=== PATIENT | male | born 1950 | race Caucasian/White ===

== ENCOUNTER 2021-05-17 15:46 | Inpatient (IN) ==
[2021-05-17] MEDS ORDERED: ONDANSETRON INJ 2 MG/ML 2 ML VIAL IV STA (16:13)
[2021-05-17] MEDS ORDERED: SODIUM CHLORIDE 0.9% 500 ML IV SCH (16:15)
--- NOTE | 2021-05-17 16:20 | Emergency Department Note ---
Impression & Plan Weakness, Vomiting and diarrhea, KAITY (acute kidney injury), Acute hyperglycemia, COVID-19, Pneumonia ED Provider Note NAME: LILA OTT AGE: 71 SEX: M : 1950 ARRIVES VIA: Ambulance INFORMANT: [Patient] ED PROVIDER(S): [Heriberto Shell MD] CHIEF COMPLAINT: Chest pain, weakness HISTORY OF PRESENT ILLNESS: The patient is a 71-year-old male who presents with multiple complaints. He typically goes to [facility] however, today, the ambulance crew would not take him there as it was too far. He presented to our facility. The patient complains of 10 to 11 days worsening dizziness, intermittent chest pain, shortness of breath, vomiting, diarrhea, cough. He has diffuse abdominal pain. He has not had fever. The patient states he can keep nothing down. The patient was admitted to [facility] in late April of last year with similar complaints to today. He was there for about 4 days. He was diagnosed with a PE and is now on Xarelto. The patient is vaccinated x2 for COVID-19. He has had his influenza vaccine. He lives alone. Today, the visiting nurses felt he looked poorly and advised him to present to the hospital. REVIEW OF SYSTEMS: See HPI for pertinent positives and negatives. A total of ten systems were reviewed and were otherwise negative. PMHx/PSHx: See Below SOCIAL HISTORY: See Below. PHYSICAL EXAM: GENERAL: Patient is in no acute distress. HEENT: No acute trauma, normocephalic atraumatic, mucous membranes moist, no nasal congestion, no scleral icterus. NECK: No stridor, no adenopathy, no meningismus, trachea is midline. LUNGS: Clear to auscultation bilaterally when listening anterior. No wheeze, no rhonchi, breath sounds equal. Dry cough noted. HEART: Without murmurs gallops or rubs, regular rate and rhythm. ABDOMEN: Soft, nontender, bowel sounds positive, no hernias, no peritonitis. Quite obese. EXTREMITIES: No cyanosis or edema, full range of motion of all the joints without pain or difficulty, no signs for acute trauma. He has a chronic skin changes to both lower extremities bilaterally. No active cellulitis or warmth present. NEUROLOGIC: Oriented x 3, no acute motor or sensory deficits, no focal weakness. SKIN: No rash, no jaundice, no diaphoresis. DIFFERENTIAL DIAGNOSIS: Infection, dehydration, metabolic abnormality, influenza, COVID-19, renal or liver failure, colitis, diverticulitis, UTI, hypo/hyperglycemia, electrolyte disturbance, anemia, hypoxia, cardiac sources, as well as other pathologies. EMERGENCY DEPARTMENT COURSE/PROCEDURES: ECG: Indication was weakness. The ECG shows a normal sinus rhythm with a rate of 77. There is no ST elevation, no PVCs. The QTC is 450. Continuous Cardiac Monitoring: An order was placed for continuous cardiac monitoring. The monitor shows a rate of 75 with normal sinus rhythm. MEDICAL DECISION MAKING: There is a mild leukocytosis which could be consistent with infection. There is a normal hemoglobin and platelet count. No coagulopathy. Renal panel testing shows a mildly low sodium and a slightly high potassium. There was some presumed acute kidney injury with a creatinine of 2.34. Glucose was quite high at 321. Lactic acid level was not elevated making severe sepsis less likely. No concerning liver enzyme elevation. The patient did have a slightly high TSH, the T4 is pending. ECG shows a normal sinus rhythm, no obvious ischemia. Cardiac enzyme testing x1 is not consistent with acute cardiac injury. Chest x-ray does not show CHF or pneumonia. COVID testing returned positive. Influenza and RSV testing returned negative. Abdominal and pelvis he does not show any acute surgical process or source for infection. Urinalysis result is pending. The patient received IV insulin, IV saline. He was given IV Zofran. The patient appears to have acute kidney injury, he is hyperglycemic, dehydrated, weak. He has COVID-19. He lives alone. He does require a hospital stay. I spoke with the patient and supervisor case loading. The on-call hospitalist was consulted. Past Med/Surg History Medical History Chronic kidney disease MONITORED, NO CURRENT TREATMENT Diabetes mellitus, type 2 A1C 7.1. History of DVT (deep vein thrombosis) FOLLOWS WITH HEMATOLOGY IN [facility]. Hyperlipidemia Hypertension Hypothyroidism Morbid obesity with BMI of 50.0-59.9, adult MTHFR mutation PT FOLLOWS WITH HEMATOLOGY IN [place], [place]. PT HAS PLASMAPHORESIS TREATMENTS Myocardial Infarction APPROX 5 YEARS. PT HAD CARDIAC CATH. NO STENTS. [facility]. Sleep apnea HX OF PREVIOUS DX. PT HAD UPP PROCEDURE 20 YEARS AGO. NO LONGER USES DEVICE. Surgical History History of bladder surgery History of cardiac cath NO History of cholecystectomy History of colonoscopy History of cystoscopy History of rectal surgery History of tonsillectomy Status post uvulopalatopharyngoplasty Family History Mother Epilepsy Social History Smoking Status: Never smoker Second Hand Exposure: No; Hx Alcohol Use: No Hx Substance Use: No Preferred Language: Azerbaijani Communication Ability: Effective [employer] Required: No Beliefs That Will Affect Care: None Current Living Situation: Alone Feels Safe at Home: Yes Assistive Devices: Denture - Upper and Glasses Allergies Allergies Allergy/AdvReac Type Severity Reaction Status Date / Time No Known Allergies Allergy Verified 05/17/21 16:38 Home Meds Home Medications Medication Instructions Recorded Confirmed aspirin 81 mg tablet,delayed 81 mg PO DAILY 08/06/18 05/17/21 release (Aspir-) atorvastatin 20 mg tablet 20 mg PO DAILY 08/06/18 05/17/21 bupropion HCl 150 mg tablet,12 hr 150 mg PO QAM 08/06/18 05/17/21 sustained-release (Wellbutrin SR) carvedilol 12.5 mg tablet 25 mg PO BID 08/06/18 05/17/21 esomeprazole magnesium 40 mg 40 mg PO DAILY 08/06/18 05/17/21 capsule,delayed release (Nexium) folic acid 1 mg tablet 1 mg PO DAILY 08/06/18 05/17/21 insulin aspart U-100 100 unit/mL 0 unit SUBCUT UD 08/06/18 05/17/21 subcutaneous solution (Novolog U-100 Insulin aspart) insulin degludec 100 unit/mL (3 74 unit SUBCUT HS 08/06/18 05/17/21 mL) subcutaneous pen (Tresiba FlexTouch U-100 insulin) liraglutide 0.6 mg/0.1 mL (18 mg/3 1.8 unit SUBCUT QAM 08/06/18 05/17/21 mL) subcutaneous pen injector (Victoza 2-Thang) lisinopril 40 mg tablet 40 mg PO DAILY 08/06/18 05/17/21 thyroid (pork) 90 mg tablet 90 mg PO DAILY 08/06/18 05/17/21 ([place] Thyroid) trazodone 100 mg tablet 200 mg PO HS 08/06/18 05/17/21 bupropion HCl 300 mg 24 hr tablet, 300 mg PO DAILY 05/17/21 05/17/21 extended release calcifediol 30 mcg capsule,24 30 mcg PO HS 05/17/21 05/17/21 hr,extended release (Rayaldee) ciprofloxacin HCl 500 mg tablet 500 mg PO BID 05/17/21 05/17/21 rivaroxaban 15 mg tablet (Xarelto) 15 mg PO DAILY 05/17/21 05/17/21 vilazodone 20 mg tablet (Viibryd) 20 mg PO QAM 05/17/21 05/17/21 Results & Data (ED) Vital Signs Vital Signs - 24 hr 05/17/21 16:19 05/17/21 16:22 05/17/21 16:38 Temperature 36.8 C Temperature Source Oral Pulse Rate 77 Pulse Rate [Apical] 77 Respiratory Rate 16 18 Respiratory Depth Normal Normal Blood Pressure 180/80 H Blood Pressure [Left Arm] 183/89 H Blood Pressure Mean 113 Blood Pressure Mean [Left Arm] 120 Pulse Oximetry 93 93 Oxygen Delivery Method Room Air Room Air Room Air Sepsis Recent Fever Within 48 Hours No Sepsis New/Unexplained Change in Mental Status No Sepsis Action Taken by Nursing No Action Required Home Medications Current Medication List: was personally reviewed by me Laboratory Data Attestation: I reviewed the patient's lab results. Result diagrams: 05/17/21 16:39 05/17/21 16:39 Lab Results 05/17/21 05/17/21 05/17/21 Range/Units 16:39 16:39 16:39 WBC (4.8-10.8) K/uL RBC (4.7-6.1) M/uL Hgb (14.0-18.0) g/dL Hct (42-52) % MCV (80-100) fL MCH (25-34) pg MCHC (32-36) g/dL RDW Std Deviation (36.4-46.3) fL RDW Coeff of Osvaldo (11.5-14.5) % Plt Count (130-400) K/uL MPV (7.4-10.4) fL Immature Gran % (Auto) % Neut % (Auto) % Lymph % (Auto) % Pettis % (Auto) % Eos % (Auto) % Baso % (Auto) % Neut # (Auto) (1.4-6.5) K/uL Lymph # (Auto) (1.2-3.4) K/uL Pettis # (Auto) (0.11-0.59) K/uL Eos # (Auto) (0-0.5) K/uL Baso # (Auto) (0-0.2) K/uL Immature Gran # (Auto) (0.00-0.02) K/uL PT 11.1 (9.0-12.0) Seconds INR 1.1 (0.9-1.1) APTT 26.6 (21.0-31.0) Seconds PTT Ratio 1.0 Sodium 133 L (136-145) mmol/L Potassium 5.5 H (3.5-5.1) mmol/L Chloride 100 (98-107) mmol/L Carbon Dioxide 19 L (21-32) mmol/L Anion Gap 14 H (3-11) BUN 38 H (6-23) mg/dl Creatinine 2.34 H (0.6-1.4) mg/dl Est Cr Clr Drug Dosing Not Reportable Est GFR ( Amer) 31.7 ml/min Est GFR (Non-Af Amer) 27.4 ml/min BUN/Creatinine Ratio 16.2 (10-20) Glucose 321 H* (70-99) mg/dl Lactate 1.9 (0.4-2.0) mmol/L Calcium 8.8 (8.5-10.1) mg/dl Magnesium 1.9 (1.7-2.4) mg/dl Total Bilirubin 1.3 H (0.2-1.0) mg/dl AST 17 (13-39) U/L ALT 15 (7-52) U/L Alkaline Phosphatase 103 (34-104) U/L Total Creatine Kinase 97 (39-308) U/L Troponin I 0.03 (0-0.04) ng/ml Total Protein 7.1 (6.0-8.3) gm/dl Albumin 3.6 (3.4-5.0) gm/dl Globulin 3.5 (2.5-4.0) gm/dl Albumin/Globulin Ratio 1.0 (0.9-2) Beta-Hydroxybutyric Acd 45.18 H (0.2-2.81) mg/dl TSH 5.063 H (0.300-4.500) uIu/ml SARS-CoV-2 (PCR) (Negative) Influenza Type A (PCR) (Neg) Influenza Type B (PCR) (Neg) RSV (RT-PCR) (Neg) 05/17/21 05/17/21 Range/Units 16:39 Unknown WBC 11.76 H (4.8-10.8) K/uL RBC 4.93 (4.7-6.1) M/uL Hgb 15.1 (14.0-18.0) g/dL Hct 44.5 (42-52) % MCV 90.3 (80-100) fL MCH 30.6 (25-34) pg MCHC 33.9 (32-36) g/dL RDW Std Deviation 46.0 (36.4-46.3) fL RDW Coeff of Osvaldo 13.9 (11.5-14.5) % Plt Count 272 (130-400) K/uL MPV 9.5 (7.4-10.4) fL Immature Gran % (Auto) 0.3 % Neut % (Auto) 74.1 % Lymph % (Auto) 14.4 % Pettis % (Auto) 8.4 % Eos % (Auto) 2.5 % Baso % (Auto) 0.3 % Neut # (Auto) 8.73 H (1.4-6.5) K/uL Lymph # (Auto) 1.69 (1.2-3.4) K/uL Pettis # (Auto) 0.99 H (0.11-0.59) K/uL Eos # (Auto) 0.29 (0-0.5) K/uL Baso # (Auto) 0.03 (0-0.2) K/uL Immature Gran # (Auto) 0.03 H (0.00-0.02) K/uL PT (9.0-12.0) Seconds INR (0.9-1.1) APTT (21.0-31.0) Seconds PTT Ratio Sodium (136-145) mmol/L Potassium (3.5-5.1) mmol/L Chloride (98-107) mmol/L Carbon Dioxide (21-32) mmol/L Anion Gap (3-11) BUN (6-23) mg/dl Creatinine (0.6-1.4) mg/dl Est Cr Clr Drug Dosing Est GFR ( Amer) ml/min Est GFR (Non-Af Amer) ml/min BUN/Creatinine Ratio (10-20) Glucose (70-99) mg/dl Lactate (0.4-2.0) mmol/L Calcium (8.5-10.1) mg/dl Magnesium (1.7-2.4) mg/dl Total Bilirubin (0.2-1.0) mg/dl AST (13-39) U/L ALT (7-52) U/L Alkaline Phosphatase (34-104) U/L Total Creatine Kinase (39-308) U/L Troponin I (0-0.04) ng/ml Total Protein (6.0-8.3) gm/dl Albumin (3.4-5.0) gm/dl Globulin (2.5-4.0) gm/dl Albumin/Globulin Ratio (0.9-2) Beta-Hydroxybutyric Acd (0.2-2.81) mg/dl TSH (0.300-4.500) uIu/ml SARS-CoV-2 (PCR) POSITIVE A* (Negative) Influenza Type A (PCR) Negative (Neg) Influenza Type B (PCR) Negative (Neg) RSV (RT-PCR) Negative (Neg) Administered Medications Discontinued Medications Sodium Chloride (Nss) 500 mls @ 999 mls/hr IV .Q31M YAS Stop: 05/17/21 16:45 Last Infusion: 05/17/21 17:15 Dose: 0 mls/hr Documented by: [id number] Admin: 05/17/21 16:44 Dose: 999 mls/hr Documented by: [id number] Sodium Chloride (Nss 1000ml) 500 mls @ 999 mls/hr IV .Q31M ONE Stop: 05/17/21 18:38 Last Admin: 05/17/21 18:42 Dose: 999 mls/hr Documented by: [id number] Insulin Human Regular (Novolin-R Insulin Per Unit Charge) 6 units IV NOW STA Stop: 05/17/21 17:55 Last Admin: 05/17/21 18:00 Dose: 6 units Documented by: [id number] Cosigned by: [id number] Ondansetron HCl (Ondansetron Inj 2 Mg/Ml 2 Ml Vial) 4 mg IV NOW STA Stop: 05/17/21 16:14 Last Admin: 05/17/21 16:44 Dose: 4 mg Documented by: [id number] Imaging Data Radiologist's Impression: Chest X-Ray 05/17/21 16:14 XR chest 1V portable CLINICAL HISTORY: weakness TECHNIQUE: Single frontal radiograph of the chest was obtained. Comparison: None available at the time of this dictation. FINDINGS: No lines and tubes are seen. The cardiomediastinal silhouette is normal. The lungs are clear. No evidence of pleural effusion or pneumothorax. IMPRESSION: No acute chest disease. ACT 112: Negative or not required by law. Electronically signed by: Abiodun Puri M.D. 05/17/2021 4:47 PM Abdomen/Pelvis CT 05/17/21 17:53 CT abd pelvis wo con CLINICAL HISTORY: pain, diarrhea, poss colitis or divertic TECHNIQUE: Helical axial images of the abdomen and pelvis were obtained. Automated dose lowering techniques and/or adjustment according to patient size were utilized for this exam. This exam was performed without intravenous contra st. COMPARISON: None available at the time of this dictation. FINDINGS: Lower chest: Multiple groundglass opacities are seen. Liver: Unremarkable. No focal lesions are seen. Gallbladder and biliary tree: Patient is status post cholecystectomy. No intra- or extrahepatic biliary ductal dilation. Pancreas: Unremarkable, no focal lesions. Spleen: Calcifications are noted in the spleen compatible with prior granuloma tous disease. Adrenals: Unremarkable. Kidneys and ureters: Unremarkable. Bladder: Unremarkable. Reproductive organs: Unremarkable. Bowel: Diverticulosis is seen without evidence of diverticulitis. A small hiatal hernia is seen. The appendix is normal. Lymph nodes Retroperitoneal: Unremarkable. Mesenteric: Unremarkable. Pelvic: Unremarkable. Peritoneum: Normal Vessels: Unremarkable. Abdominal wall: A fat-containing umbilical hernia is seen. Bones: Degenerative changes in the visualized spine. IMPRESSION: 1. No acute abnormalities, in particular diverticulosis is seen without evidence of diverticulitis or colitis. 2. Multiple groundglass opacities in the visualized lungs which likely reflect infectious/inflammatory etiology. ACT 112: Negative or not required by law. Electronically signed by: Abiodun Puri M.D. 05/17/2021 6:42 PM Discharge Plan Visit Data Chief Complaint: Chest Pain ED Provider: Heriberto Shell Discharge Problem: Weakness, Vomiting and diarrhea, KAITY (acute kidney injury), Acute hyperglycemia, COVID-19, Pneumonia Patient Disposition: Admitted As Inpatient Condition: Fair Forms Stand Alone Forms: My [facility] Prescriptions Prescriptions: No Action bupropion HCl [Wellbutrin SR] 150 mg Tablet Sustained-Release 12 Hr 150 mg PO QAM RF: 0 atorvastatin 20 mg Tablet 20 mg PO DAILY RF: 0 carvedilol 12.5 mg Tablet 25 mg PO BID RF: 0 aspirin [Aspir-81] 81 mg Tablet,Delayed Release (Dr/Ec) 81 mg PO DAILY RF: 0 trazodone 100 mg Tablet 200 mg PO HS RF: 0 insulin aspart U-100 [Novolog U-100 Insulin aspart] 100 unit/mL Solution 0 unit SUBCUT UD RF: 0 esomeprazole magnesium [Nexium] 40 mg Capsule,Delayed Release(Dr/Ec) 40 mg PO DAILY RF: 0 folic acid 1 mg Tablet 1 mg PO DAILY RF: 0 lisinopril 40 mg Tablet 40 mg PO DAILY RF: 0 thyroid (pork) [[place] Thyroid] 90 mg Tablet 90 mg PO DAILY RF: 0 Victoza 2-Thang 0.6 mg/0.1 mL (18 mg/3 mL) Pen Injector 1.8 unit SUBCUT QAM RF: 0 Tresiba FlexTouch U-100 100 unit/mL (3 mL) Insulin Pen 74 unit SUBCUT HS RF: 0 ciprofloxacin HCl 500 mg tablet 500 mg PO BID RF: 0 bupropion HCl 300 mg tablet extended release 24 hr 300 mg PO DAILY RF: 0 Viibryd 20 mg tablet 20 mg PO QAM RF: 0 Xarelto 15 mg tablet 15 mg PO DAILY RF: 0 Rayaldee 30 mcg capsule,extended release 24 hr 30 mcg PO HS RF: 0 Referrals Referrals: PCP,NO [Primary Care Provider] - Discharge Problem: Pneumonia Qualifiers: Pneumonia type: due to unspecified organism Laterality: bilateral Lung location: unspecified part of lung Qualified Code(s): J18.9 - Pneumonia, unspecified organism
--- NOTE | 2021-05-17 16:48 | XRay Report ---
XR chest 1V portable CLINICAL HISTORY: weakness TECHNIQUE: Single frontal radiograph of the chest was obtained. Comparison: None available at the time of this dictation. FINDINGS: No lines and tubes are seen. The cardiomediastinal silhouette is normal. The lungs are clear. No evid ence of pleural effusion or pneumothorax. IMPRESSION: No acute chest disease. ACT 112: Negative or not required by law. Electronically signed by: Abiodun Puri M.D. 05/17/2021 4:47 PM
[2021-05-17 17:11] LABS: Basophils # (auto) 0.03 K/uL (0-0.2); Basophils % (auto) 0.3 %; Eosinophils # (auto) 0.29 K/uL (0-0.5); Eosinophils % (auto) 2.5 %; Hematocrit (blood only) 44.5 % (42-52); Hemoglobin 15.1 g/dL (14.0-18.0); Immature Granulocytes # (auto) 0.03 K/uL (0.00-0.02); Immature Granulocytes % (auto) 0.3 %; Lymphocytes # (auto) 1.69 K/uL (1.2-3.4); Lymphocytes % (auto) 14.4 %; Mean Corpuscular Hemoglobin 30.6 pg (25-34); Mean Corpuscular Hgb Conc 33.9 g/dL (32-36); Mean Corpuscular Volume 90.3 fL (80-100); Mean Platelet Volume 9.5 fL (7.4-10.4); Monocytes # (auto) 0.99 K/uL (0.11-0.59); Monocytes % (auto) 8.4 %; Neutrophils # (auto) 8.73 K/uL (1.4-6.5); Neutrophils % (auto) 74.1 %; Platelet Count 272 K/uL (130-400); RDW Coefficient of Variation 13.9 % (11.5-14.5); Red Blood Count 4.93 M/uL (4.7-6.1); White Blood Count 11.76 K/uL (4.8-10.8)
[2021-05-17 17:29] LABS: INR 1.1 (0.9-1.1); Partial Thromboplastin Time 26.6 Seconds (21.0-31.0); Prothrombin Time 11.1 Seconds (9.0-12.0)
[2021-05-17 17:33] LABS: Troponin I 0.03 ng/ml (0-0.04)
[2021-05-17 17:44] LABS: Influenza A virus by PCR Negative (Neg); Influenza B virus by PCR Negative (Neg); RSV by PCR Negative (Neg)
[2021-05-17 17:49] LABS: Alanine Aminotransferase 15 U/L (7-52); Albumin Level 3.6 gm/dl (3.4-5.0); Alkaline Phosphatase 103 U/L (34-104); Anion Gap 14 (3-11); Aspartate Aminotransferase 17 U/L (13-39); BUN Creatinine Ratio 16.2 (10-20); Bilirubin,Total 1.3 mg/dl (0.2-1.0); Blood Urea Nitrogen 38 mg/dl (6-23); Calcium 8.8 mg/dl (8.5-10.1); Carbon Dioxide 19 mmol/L (21-32); Chloride 100 mmol/L (98-107); Creatine Kinase 97 U/L (39-308); Est GFR (African American) 31.7 ml/min; Est GFR (Non-African American) 27.4 ml/min; Globulin 3.5 gm/dl (2.5-4.0); Glucose 321 mg/dl (70-99); Magnesium 1.9 mg/dl (1.7-2.4); Potassium 5.5 mmol/L (3.5-5.1); Sodium 133 mmol/L (136-145); Thyroid Stimulating Hormone 5.063 uIu/ml (0.300-4.500); Total Protein 7.1 gm/dl (6.0-8.3)
[2021-05-17 17:51] LABS: SARS CoV2 RNA(COVID-19) InHosp POSITIVE (Negative)
[2021-05-17] MEDS ORDERED: NovoLIN-R INSULIN PER UNIT CHARGE IV STA (17:54)
[2021-05-17] MEDS ORDERED: SODIUM CHLORIDE 0.9% 1000ML 500 ML IV ONE (18:08)
[2021-05-17 18:10] LABS: Beta-Hydroxybutyrate 45.18 mg/dl (0.2-2.81)
--- NOTE | 2021-05-17 18:43 | CT Scan Report ---
CT abd pelvis wo con CLINICAL HISTORY: pain, diarrhea, poss colitis or divertic TECHNIQUE: Helical axial images of the abdomen and pelvis were obtained. Automated dose lowering tech niques and/or adjustment according to patient size were utilized for this exam. This exam was perfor med without intravenous contrast. COMPARISON: None available at the time of this dictation. FINDINGS: Lower chest: Multiple groundglass opacities are seen. Liver: Unremarkable. No focal lesions are seen. Gallbladder and biliary tree: Patient is status post cholecystectomy. No intra- or extrahepatic bilia ry ductal dilation. Pancreas: Unremarkable, no focal lesions. Spleen: Calcifications are noted in the spleen compatible with prior granulomatous disease. Adrenals: Unremarkable. Kidneys and ureters: Unremarkable. Bladder: Unremarkable. Reproductive organs: Unremarkable. Bowel: Diverticulosis is seen without evidence of diverticulitis. A small hiatal hernia is seen. The appendix is normal. Lymph nodes Retroperitoneal: Unremarkable. Mesenteric: Unremarkable. Pelvic: Unremarkable. Peritoneum: Normal Vessels: Unremarkable. Abdominal wall: A fat-containing umbilical hernia is seen. Bones: Degenerative changes in the visualized spine. IMPRESSION: 1. No acute abnormalities, in particular diverticulosis is seen without evidence of diverticulitis o r colitis. 2. Multiple groundglass opacities in the visualized lungs which likely reflect infectious/inflammato ry etiology. ACT 112: Negative or not required by law. Electronically signed by: Abiodun Puri M.D. 05/17/2021 6:42 PM
[2021-05-17] MEDS ORDERED: ONDANSETRON INJ 2 MG/ML 2 ML VIAL ONE (19:23)
[2021-05-17] MEDS ORDERED: hydrALAZINE HCL 20 MG/ML VIAL IV STA (19:52)
[2021-05-17] MEDS ORDERED: PHARMACY GLYCEMIC MGMT CONSULT PRN (19:53)
--- NOTE | 2021-05-17 19:55 | History & Physical Report ---
Date of Service May 17, 2021 Assessment & Plan (1) Acute respiratory failure with hypoxia: (2) Pneumonia due to COVID-19 virus: Plan: -Admit to [facility] with telemetry -Patient presenting from home with reports of shortness of breath, intractable nausea and vomiting. Patient reports recently being admitted to [facility] at the end of April and was diagnosed with acute pulmonary embolism. Patient was started on Xarelto. Reports that he was admitted for similar symptoms he presents with today and has continued to feel poorly since discharge from the hospital. -In the ED, patient tested positive for COVID-19. Patient is vaccinated however overdue for booster. -Initially patient was saturating well on room air however when ambulating to the bathroom, became hypoxic requiring 2 L of oxygen via nasal cannula -CXR relatively clear however CT ABD/pelvis shows bibasilar groundglass opacities -Start IV Decadron -Given KAITY and duration of symptoms, patient would not meet criteria for remdesivir therapy -Check procalcitonin and CRP -Supportive care with incentive spirometer, flutter valve, albuterol inhaler, encourage self proning (3) KAITY (acute kidney injury): (4) Chronic kidney disease: Plan: -Creatinine 2.34, unknown baseline -Patient reports he follows with Dr. Shaw in [place]. Will need to request records tomorrow. -Hold lisinopril for now -May have prerenal KAITY due to poor p.o. intake and vomiting -IVF, follow renal functions (5) Acute hyperglycemia: (6) Diabetes mellitus, type 2: Plan: -May have early/mild DKA -bicarb 19, anion gap 14, glucose 321, elevated beta hydroxybutyric acid -Start IV insulin drip per protocol (7) Nausea and vomiting: Plan: -May be due to COVID-19 infection -If no improvement, consider GI evaluation (8) History of pulmonary embolism: Plan: -Per patient he was recently diagnosed with acute pulmonary embolism while admitted to [facility] and started on Xarelto -Given abnormal renal function, will transition patient to Eliquis 5 mg twice daily. Dosing was discussed with pharmacist. (9) CAD (coronary artery disease): Plan: -Appears stable, no reports of chest pain -Continue ASA, statin, beta-antonio (10) Hypertension: Plan: -BP elevated -will give hydralazine 10 mg x 1 dose -Continue carvedilol, holding lisinopril for now due to KAITY (11) Depression: Plan: - Continue home meds (12) DVT prophylaxis: Plan: -Eliquis as above History of Present Illness Chief Complaint: Shortness of breath, nausea and vomiting Primary Care Provider: Dr. Carranza 71 year old male with PMH DM type II, HLD, PVD, HTN, CAD (patient denies stenting or CABG), CKD (unknown baseline creatinine), depression, history of MTHFR mutation, recent diagnosis of pulmonary embolism anticoagulant on Xarelto, hypothyroidism, who presents to the ED for evaluation of shortness of breath and nausea and vomiting. Patient reports being recently admitted to [facility] for similar complaints. Reports that he was diagnosed with pulmonary embolism. States that he has continued to feel poorly since his hospitalization. He reports ongoing shortness of breath, nausea and vomiting. He has had a cough productive for clear/white sputum. He has had a very poor appetite. Denies hematemesis and coffee-ground emesis. He also has been having diarrhea. Denies bright lymph rectum and dark tarry stools. No abdominal pain. Denies fevers and chills. No chest pain. Denies lightheadedness, dizziness, diaphoresis, syncopal event. No urinary symptoms. In the ED, patient tested positive for COVID-19. He was found to be hypoxic on room air with ambulation. Currently requiring 2 years of oxygen via cannula. Labs show creatinine 2.34 (unknown baseline), glucose 321. CT ABD/pelvis unremarkable for acute abdominal findings however does show bibasilar groundglass opacities. Patient was given IV insulin, IV Zofran, IVF. Allergies Allergy/AdvReac Type Severity Reaction Status Date / Time No Known Allergies Allergy Verified 05/17/21 16:38 Home Medications Medication Instructions Recorded Confirmed Type aspirin 81 mg tablet,delayed 81 mg PO DAILY 08/06/18 05/17/21 History release (Aspir-) atorvastatin 20 mg tablet 20 mg PO DAILY 08/06/18 05/17/21 History bupropion HCl 150 mg tablet,12 hr 150 mg PO QAM 08/06/18 05/17/21 History sustained-release (Wellbutrin SR) carvedilol 12.5 mg tablet 25 mg PO BID 08/06/18 05/17/21 History esomeprazole magnesium 40 mg 40 mg PO DAILY 08/06/18 05/17/21 History capsule,delayed release (Nexium) folic acid 1 mg tablet 1 mg PO DAILY 08/06/18 05/17/21 History insulin aspart U-100 100 unit/mL 0 unit SUBCUT UD 08/06/18 05/17/21 History subcutaneous solution (Novolog U-100 Insulin aspart) insulin degludec 100 unit/mL (3 74 unit SUBCUT HS 08/06/18 05/17/21 History mL) subcutaneous pen (Tresiba FlexTouch U-100 insulin) liraglutide 0.6 mg/0.1 mL (18 mg/3 1.8 unit SUBCUT QAM 08/06/18 05/17/21 History mL) subcutaneous pen injector (Victoza 2-Thang) lisinopril 40 mg tablet 40 mg PO DAILY 08/06/18 05/17/21 History thyroid (pork) 90 mg tablet 90 mg PO DAILY 08/06/18 05/17/21 History ([place]hin Thyroid) trazodone 100 mg tablet 200 mg PO HS 08/06/18 05/17/21 History bupropion HCl 300 mg 24 hr tablet, 300 mg PO DAILY 05/17/21 05/17/21 History extended release calcifediol 30 mcg capsule,24 30 mcg PO HS 05/17/21 05/17/21 History hr,extended release (Rayaldee) ciprofloxacin HCl 500 mg tablet 500 mg PO BID 05/17/21 05/17/21 History rivaroxaban 15 mg tablet (Xarelto) 15 mg PO BID 05/17/21 05/17/21 History vilazodone 20 mg tablet (Viibryd) 20 mg PO QAM 05/17/21 05/17/21 History Past Med/Surg History Medical History (Updated 05/17/21 @ 20:14 by YANET Avery) CAD (coronary artery disease) Chronic kidney disease Depression Diabetes mellitus, type 2 History of DVT (deep vein thrombosis) History of pulmonary embolism Hyperlipidemia Hypertension Hypothyroidism Morbid obesity with BMI of 50.0-59.9, adult MTHFR mutation PT FOLLOWS WITH HEMATOLOGY IN [place]. PT HAS PLASMAPHORESIS TREATMENTS Myocardial Infarction PT HAD CARDIAC CATH. NO STENTS. [facility]. PVD (peripheral vascular disease) Sleep apnea HX OF PREVIOUS DX. PT HAD UPP PROCEDURE 20 YEARS AGO. NO LONGER USES DEVICE. Surgical History History of bladder surgery History of cardiac cath NO History of cholecystectomy History of colonoscopy History of cystoscopy History of rectal surgery History of tonsillectomy Status post uvulopalatopharyngoplasty Family History Mother Epilepsy Social History Smoking Status: Never smoker Second Hand Exposure: No; Hx Alcohol Use: No Hx Substance Use: No Preferred Language: Ghanaian Communication Ability: Effective Manager Intel Required: No Beliefs That Will Affect Care: None Current Living Situation: Alone Other Information That Helps Us Care for You: No Feels Safe at Home: Yes Assistive Devices: Glasses Review of Systems Review of Systems: ROS per HPI, all other systems reviewed and negative Physical Exam Physical Exam: please refer to Dr. Carrizales's addendum for physical exam Results & Data Results & Data ([facility]) Vital Signs (Past 12 Hours) Vital Signs Temp Pulse Pulse Resp BP BP Pulse Ox 05/17/21 19:53 96 05/17/21 19:52 98 H 23 217/98 H 87 L 05/17/21 19:04 80 16 94 05/17/21 16:22 36.8 C 77 18 180/80 H 93 05/17/21 16:19 77 16 183/89 H 93 Laboratory Results Short CBC 05/17/21 05/17/21 Range/Units 16:39 16:39 WBC 11.76 H (4.8-10.8) K/uL Hgb 15.1 (14.0-18.0) g/dL Hct 44.5 (42-52) % Plt Count 272 (130-400) K/uL Est Cr Clr Drug Dosing Not Reportable BMP 05/17/21 16:39 Sodium 133 L Potassium 5.5 H Chloride 100 Carbon Dioxide 19 L BUN 38 H Creatinine 2.34 H Glucose 321 H* Calcium 8.8 Cardiac Enzymes 05/17/21 Range/Units 16:39 Total Creatine Kinase 97 (39-308) U/L Troponin I 0.03 (0-0.04) ng/ml Liver Function 05/17/21 Range/Units 16:39 Total Bilirubin 1.3 H (0.2-1.0) mg/dl AST 17 (13-39) U/L ALT 15 (7-52) U/L Alkaline Phosphatase 103 (34-104) U/L Albumin 3.6 (3.4-5.0) gm/dl Diagnostic Findings Chest X-Ray 05/17/21 16:14 XR chest 1V portable CLINICAL HISTORY: weakness TECHNIQUE: Single frontal radiograph of the chest was obtained. Comparison: None available at the time of this dictation. FINDINGS: No lines and tubes are seen. The cardiomediastinal silhouette is normal. The lungs are clear. No evidence of pleural effusion or pneumothorax. IMPRESSION: No acute chest disease. ACT 112: Negative or not required by law. Electronically signed by: Abiodun Puri M.D. 05/17/2021 4:47 PM Abdomen/Pelvis CT 05/17/21 17:53 CT abd pelvis wo con CLINICAL HISTORY: pain, diarrhea, poss colitis or divertic TECHNIQUE: Helical axial images of the abdomen and pelvis were obtained. Automated dose lowering techniques and/or adjustment according to patient size were utilized for this exam. This exam was performed without intravenous contrast. COMPARISON: None available at the time of this dictation. FINDINGS: Lower chest: Multiple groundglass opacities are seen. Liver: Unremarkable. No focal lesions are seen. Gallbladder and biliary tree: Patient is status post cholecystectomy. No intra- or extrahepatic biliary ductal dilation. Pancreas: Unremarkable, no focal lesions. Spleen: Calcifications are noted in the spleen compatible with prior granulomatous disease. Adrenals: Unremarkable. Kidneys and ureters: Unremarkable. Bladder: Unremarkable. Reproductive organs: Unremarkable. Bowel: Diverticulosis is seen without evidence of diverticulitis. A small hiatal hernia is seen. The appendix is normal. Lymph nodes Retroperitoneal: Unremarkable. Mesenteric: Unremarkable. Pelvic: Unremarkable. Peritoneum: Normal Vessels: Unremarkable. Abdominal wall: A fat-containing umbilical hernia is seen. Bones: Degenerative changes in the visualized spine. IMPRESSION: 1. No acute abnormalities, in particular diverticulosis is seen without evidence of diverticulitis or colitis. 2. Multiple groundglass opacities in the visualized lungs which likely reflect infectious/inflammatory etiology. ACT 112: Negative or not required by law. Electronically signed by: Abiodun Puri M.D. 05/17/2021 6:42 PM Code Status & VTE Plan Code Status Patient is a DNR as per my discussion with him. Supervising Physician Co-Signing Physician Notes Care coordinated with YANET Avery. Agree with above note. Patient seen and examined. Please refer to her notes for full details. Vital signs reviewed. Physical exam: General exam: Alert and oriented. Not in acute distress. CVS: S1 and S2 heard, regular rate and rhythm, no murmurs. RS: Clear to auscultation, no wheezing or crackles. ABD: Soft, bowel sounds present, nontender, no distention. TILE AND MARBLE SETTER: Nonfocal. EXT: No edema, no erythema. Labs: Reviewed. Assessment and plan: 71M who was recently in [facility] and was diagnosed with PE and placed on xarelto and not feeling well since then. At home lot of nausea/vomiting, poor appetite, sob. Cam here and was found to have covid pneumonia. Covid Pneumonia currently placed on steroids and supportive care did not give remedsivir because of renal function if renal function improves can start on remdesivir Kaity/CKD dot know baseline Follow records holding lisinopril on fluids follow repeat labs. Mild DKA On insulin pump pharmacy consulted follow dka labs PE recent dx xarelto changed to eliquis because of renal function Other diagnosis and plan of care as per YANET Avery MD.
[2021-05-17] MEDS ORDERED: STAT IV Infusion **Titration per Protocol STA ×2 (20:09)
[2021-05-17] MEDS ORDERED: SODIUM CHLORIDE 0.9% 1000ML 1,000 ML IV SCH ×2 (20:15→23:19)
[2021-05-17] MEDS: dexAMETHasone 6 MG in SYRINGE 0 ML IV SCH (20:42)
[2021-05-17 21:08] LABS: Potassium 4.4 mmol/L (3.5-5.1)
[2021-05-17 21:10] LABS: Anion Gap 15 (3-11); BUN Creatinine Ratio 16.7 (10-20); Blood Urea Nitrogen 37 mg/dl (6-23); Calcium 8.6 mg/dl (8.5-10.1); Carbon Dioxide 18 mmol/L (21-32); Chloride 104 mmol/L (98-107); Est GFR (Non-African American) 29.3 ml/min; Glucose 286 mg/dl (70-99); Magnesium 1.8 mg/dl (1.7-2.4); Phosphorus 3.8 mg/dl (2.5-4.9); Sodium 137 mmol/L (136-145)
[2021-05-17 21:58] LABS: Anion Gap 13 (3-11); BUN Creatinine Ratio 16.8 (10-20); Blood Urea Nitrogen 37 mg/dl (6-23); Calcium 8.2 mg/dl (8.5-10.1); Carbon Dioxide 17 mmol/L (21-32); Chloride 106 mmol/L (98-107); Est GFR (African American) 34.2 ml/min; Est GFR (Non-African American) 29.5 ml/min; Glucose 290 mg/dl (70-99); Potassium 5.1 mmol/L (3.5-5.1); Sodium 136 mmol/L (136-145)
[2021-05-17] MEDS: INSULIN REGULAR 250 UNITS in SODIUM CHLORIDE 0.9% 247.5 ML IV SCH (22:29)
[2021-05-17] MEDS: INSULIN ASPART PER UNIT SC SCH (22:33)
[2021-05-17] MEDS: carvediloL 12.5 MG TAB PO SCH (23:06)
[2021-05-17] MEDS ORDERED: GLUCOSE 40% GEL 15 GM TUBE PO PRN (23:19)
[2021-05-17] MEDS ORDERED: GLUCOSE 10 TABS/TUBE PO PRN (23:19)
[2021-05-17] MEDS ORDERED: DEXTROSE 50% 50 ML SYRINGE IV PRN (23:19)
[2021-05-17] MEDS ORDERED: ALBUTEROL HFA 8 GM INHALER INH PRN (23:19)
[2021-05-17] MEDS ORDERED: ACETAMINOPHEN 325 MG TAB PO PRN (23:19)
[2021-05-17] MEDS ORDERED: CARBOHYDRATES FOR HYPOGLYCEMIA PO PRN (23:19)
[2021-05-17] MEDS ORDERED: ONDANSETRON INJ 2 MG/ML 2 ML VIAL IV PRN (23:19)
[2021-05-17] MEDS ORDERED: APIXABAN 2.5 MG TAB PO SCH (23:19)
[2021-05-17] MEDS ORDERED: GLUCAGON FOR INJ 1 MG VIAL SQ PRN (23:19)
[2021-05-18 01:13] LABS: BUN Creatinine Ratio 17.1 (10-20); Calcium 8.4 mg/dl (8.5-10.1); Creatinine Clr Calc Pharmacy 47.7 ml/min; Est GFR (African American) 33.8 ml/min; Est GFR (Non-African American) 29.2 ml/min; Magnesium 1.8 mg/dl (1.7-2.4); Potassium 4.6 mmol/L (3.5-5.1)
[2021-05-18] MEDS: traZODone HCL 100 MG TAB PO SCH ×2 (01:31→20:05)
[2021-05-18] MEDS: APIXABAN 5 MG TABLET PO SCH ×3 (02:28→20:04)
[2021-05-18] MEDS ORDERED: D5W AND 1/2NSS + 20MEQ KCL 20 MEQ/1,000 ML BAG IV SCH (02:30)
[2021-05-18] MEDS: PENDING D5 1/2NS+20mEq KCL IVF SCH (02:41)
[2021-05-18] MEDS: PENDING 1/2NSS+20mEq KCL IVF SCH (02:41)
[2021-05-18 04:42] LABS: Hematocrit (blood only) 42.2 % (42-52); Hemoglobin 14.5 g/dL (14.0-18.0); Mean Corpuscular Hemoglobin 30.5 pg (25-34); Mean Corpuscular Hgb Conc 34.4 g/dL (32-36); Mean Corpuscular Volume 88.7 fL (80-100); Mean Platelet Volume 9.2 fL (7.4-10.4); Platelet Count 194 K/uL (130-400); RDW Coefficient of Variation 13.7 % (11.5-14.5); Red Blood Count 4.76 M/uL (4.7-6.1); White Blood Count 9.54 K/uL (4.8-10.8)
[2021-05-18 05:03] LABS: BUN Creatinine Ratio 18.1 (10-20); Calcium 8.4 mg/dl (8.5-10.1); Creatinine Clr Calc Pharmacy 51.9 ml/min; Est GFR (African American) 37.4 ml/min; Est GFR (Non-African American) 32.3 ml/min; Magnesium 1.7 mg/dl (1.7-2.4); Potassium 4.6 mmol/L (3.5-5.1)
[2021-05-18 06:03] LABS: Estimated Average Glucose 223 mg/dl; Hemoglobin A1C 9.4 % (4.5-5.6)
--- NOTE | 2021-05-18 08:03 | Electrocardiogram Report ---
Test Reason : Blood Pressure : / mmHG Vent. Rate : 077 BPM Atrial Rate : 077 BPM P-R Int : 176 ms QRS Dur : 088 ms QT Int : 398 ms P-R-T Axes : 049 007 044 degrees QTc Int : 450 ms Poor data quality, interpretation may be adversely affected Normal sinus rhythm Normal ECG No previous ECGs available Confirmed by Orlando Haq ([id number]) on 05/18/2021 8:03:06 AM Referred By: REFERRED SELF Confirmed By:Orlando Haq
[2021-05-18] MEDS: INSULIN ASPART PER UNIT SC SCH ×4 (08:26→21:37)
[2021-05-18] MEDS: PANTOprazole 40 MG TAB PO SCH (08:28)
[2021-05-18] MEDS: ARMOUR THYROID 30 MG TAB PO SCH (08:28)
[2021-05-18] MEDS: buPROPion SR 150 MG TABCR PO SCH (08:28)
[2021-05-18] MEDS: ASPIRIN 81 MG ECTAB PO SCH (08:28)
[2021-05-18] MEDS: FOLIC ACID 1 MG TAB PO SCH (08:28)
[2021-05-18] MEDS: dexAMETHasone 6 MG in SYRINGE 0 ML IV SCH (08:28)
[2021-05-18] MEDS: buPROPion XL 300 MG TABCR PO SCH (08:28)
[2021-05-18] MEDS: ATORVASTATIN 20 MG TAB PO SCH (08:28)
[2021-05-18] MEDS: carvediloL 12.5 MG TAB PO SCH ×2 (08:29→20:04)
[2021-05-18 09:13] LABS: Calcium 8.5 mg/dl (8.5-10.1); Creatinine Clr Calc Pharmacy 47.5 ml/min; Est GFR (African American) 33.6 ml/min; Magnesium 1.7 mg/dl (1.7-2.4); Phosphorus 3.2 mg/dl (2.5-4.9); Potassium 4.5 mmol/L (3.5-5.1)
[2021-05-18] MEDS: INSULIN HUMAN NPH SC SCH (09:22)
[2021-05-18] MEDS: VIIBRYD~ORDER AWAITING ACTION SCH ×3 (10:09→22:53)
[2021-05-18] MEDS ORDERED: INSULIN GLARGINE SOLOSTAR 100 UNITS/ML 3 ML PEN SC ONE (10:30)
--- NOTE | 2021-05-18 10:31 | Pharmacy Report ---
Pharmacy Glycemic Short Note 2 - Date of Service May 18, 2021 - Glycemic Short BSG Results (Last 24 hours): 05/17/21 05/17/21 05/17/21 16:39 20:23 20:26 Glucose 321 H* 286 H POC Glucose 265 H 05/17/21 05/17/21 05/17/21 21:21 22:20 23:09 Glucose 290 H POC Glucose 270 H 289 H 05/18/21 05/18/21 05/18/21 00:38 01:08 02:01 Glucose 276 H POC Glucose 254 H 192 H 05/18/21 05/18/21 05/18/21 03:00 03:21 04:07 Glucose POC Glucose 145 H 161 H 165 H 05/18/21 05/18/21 05/18/21 04:32 05:02 06:06 Glucose 170 H POC Glucose 176 H 180 H 05/18/21 05/18/21 05/18/21 07:08 08:17 08:26 Glucose 239 H POC Glucose 187 H 245 H 05/18/21 05/18/21 09:02 10:15 Glucose POC Glucose 260 H 249 H OUTPATIENT ANTIDIABETIC REGIMEN: * Tresiba 74 units SC HS * Novolog 24 units SC with breakfast and lunch, 40 units SC with dinner * Victoza 1.8 units SC qAM * HbA1c: 9.4% (05/18/21) ASSESSMENT: * DW is a 71 year old male admitted last evening for COVID-19 pneumonia with likely mild DKA * Labs on presentation * BS mg/dL * Serum bicarbonate: 19 mmol/L * Anion gap: 14 * Beta-Hydroxybutyric acid: 45 mg/dL * Insulin infusion initiated in ED and continues this morning. Anion gap now 10, serum bicarbonate of 20. * Receiving dexamethasone 6 mg IV daily - covered with ~0.4 unit/kg (adjusted body weight) NPH * Now that labs are improved, will give dose of Lantus now in attempt to begin insulin drip transition to SC * Dextrose-containing IV fluids changed to NSS w/ 20 KCl @ 100 mL/hr PLAN FOR INPATIENT GLYCEMIC CONTROL: * IV insulin infusion * Continue for now, will transition to SC basal/bolus when appropriate * Basal insulin * Lantus 70 units SC x1 this morning + 35 units SC this evening to aid in insulin drip transition * NPH 40 units SC daily with IV dexamethasone (~0.4 unit/kg of adjusted body weight) * Bolus insulin * NovoLog per scale ACHS or Q6hrs while NPO * Goal Range: Low 110 mg/dL - High 180 mg/dL * 1 unit per 4 grams of carbohydrate PLAN FOR DISCHARGE: * tbd
[2021-05-18] MEDS: NSS + 20MEQ KCL 20 MEQ/1,000 ML BAG IV SCH ×2 (12:55→23:56)
[2021-05-18 13:24] LABS: BUN Creatinine Ratio 17.1 (10-20); Calcium 8.5 mg/dl (8.5-10.1); Creatinine Clr Calc Pharmacy 48.8 ml/min; Est GFR (African American) 34.7 ml/min; Magnesium 1.7 mg/dl (1.7-2.4); Phosphorus 2.8 mg/dl (2.5-4.9); Potassium 4.2 mmol/L (3.5-5.1)
--- NOTE | 2021-05-18 15:16 | Hospitalist Progress Note ---
Date of Service May 18, 2021 Assessment & Plan (1) Pneumonia due to COVID-19 virus: (2) Acute hyperglycemia: Plan: 71 year old male with PMH DM type II, HLD, PVD, HTN, CAD (patient denies stenting or CABG), CKD (unknown baseline creatinine), depression, history of MTHFR mutation, recent diagnosis of pulmonary embolism anticoagulant on Xarelto, hypothyroidism, presented to ED 05/17 for evaluation of shortness of breath and nausea and vomiting. Of note, patient reports being recently admitted to [facility] for similar complaints and was found to have pulmonary embolism and started on Xarelto. Is being managed for the following: (1) Acute respiratory failure with hypoxia: - resolved (2) Pneumonia due to COVID-19 virus: Plan: -Admitted to [facility] with telemetry -Patient presenting from home with reports of shortness of breath, intractable nausea and vomiting. Patient reports recently being admitted to [facility] at the end of April and was diagnosed with acute pulmonary embolism. Patient was started on Xarelto. Reports that he was admitted for similar symptoms he presented with at admission and has continued to feel poorly since discharge from the hospital. -In the ED, patient tested positive for COVID-19. Patient is vaccinated however overdue for booster. -Initially patient was saturating well on room air however when ambulating to the bathroom, became hypoxic requiring 2 L of oxygen via nasal cannula in the ED - Admitting CXR relatively clear however CT ABD/pelvis shows bibasilar groundglass opacities -Admitting procalcitonin and CRP negative. -c/w Decadron 05/17; patient on room air at bedside exam, if stable on room air, can discontinue Decadron tomorrow. -Given KAITY and duration of symptoms, patient didn't meet criteria for remdesivir therapy --Supportive care with incentive spirometer, flutter valve, albuterol inhaler, encourage self proning (3) KAITY (acute kidney injury): (4) Chronic kidney disease: Plan: -Creatinine 2.34, unknown baseline -Patient reports he follows with Dr. Shaw in [place]. -Held lisinopril for now -May have prerenal KAITY due to poor p.o. intake and vomiting -IVF, creatinine improving, 1.99 today. -BMP daily (5) Acute hyperglycemia: (6) Diabetes mellitus, type 2: Plan: -May have early/mild DKA -bicarb 19, anion gap 14, glucose 321, elevated beta hydroxybutyric acid at presentation -Continue with insulin drip, glycemic pharmacy actively managing, BMP every 4 hours while on insulin drip, continue with IV fluids. IV fluid choice will depend on BMP and blood glucose level. bridge with subcutaneous insulin when able. (7) Nausea and vomiting: Plan: -May be due to COVID-19 infection vs DKA - Improving (8) History of pulmonary embolism: Plan: -Per patient he was recently diagnosed with acute pulmonary embolism while admitted to [facility] and started on Xarelto -Given abnormal renal function, patient transitioned to Eliquis 5 mg twice daily. Dosing was discussed with pharmacist. (9) CAD (coronary artery disease): Plan: -Appears stable, no reports of chest pain -Continue ASA, statin, beta-antonio (10) Hypertension: Plan: -BP elevated -will give hydralazine 10 mg x 1 dose -Continue carvedilol, holding lisinopril for now due to KAITY (11) Depression: Plan: - Continue home meds (12) DVT prophylaxis: Plan: -Eliquis as above Disposition: Might need preauth for Eliquis, expect discharge in next 1-2 days. . Admission and Anticipated Discharge Date Admission Date: May 17, 2021 Subjective Patient was lying in bed, on room air, NAD, no new acute events overnight. Patient reports improvement in his cough, diarrhea and nausea. Patient reports feeling better. Patient denies any fever/headache/chills/chest pain/palpitations/other review of symptoms. Patient is on clear diet and we can advance the diet as tolerated, communicated with RN. Per RN, patient is doing fine and has not been desaturating with movement. Patient is still on insulin drip at bedside exam for his DKA. Physical Exam Physical Exam: GENERAL: Alert and oriented x3. NAD, on RA. Morbidly obese. HEENT: No pallor, no icterus. Pupils equal, round and reactive to light. Oral mucosa moist. NECK: No JVD, no neck masses. HEART: S1 and S2 heard. Regular rate and rhythm. No murmur, no gallop. RESPIRATORY SYSTEM: Normal AP diameter. No accessory muscle use. No wheezing, no crackles. ABDOMEN: Soft, bowel sounds present, epigastric tender, no distention. CENTRAL NERVOUS SYSTEM: No facial droop. Speech is clear. Obeys simple commands. Moves extremities. EXTREMITIES: Trace to 1+ BLE edema, chronic skin changes appreciated. No erythema seen. Results & Data Results & Data ([facility]) Vital Signs (Past 12 Hours) Vital Signs Temp Pulse Resp BP Pulse Ox 05/18/21 12:15 36.6 C 54 L 22 122/65 96 05/18/21 06:51 36.4 C L 57 L 18 144/72 H 95 05/18/21 04:10 36.7 C 60 18 126/64 95
[2021-05-18 16:49] LABS: BUN Creatinine Ratio 18.1 (10-20); Calcium 8.1 mg/dl (8.5-10.1); Creatinine Clr Calc Pharmacy 53.2 ml/min; Est GFR (African American) 38.6 ml/min; Est GFR (Non-African American) 33.3 ml/min; Magnesium 1.7 mg/dl (1.7-2.4); Phosphorus 2.2 mg/dl (2.5-4.9); Potassium 4.4 mmol/L (3.5-5.1)
[2021-05-18] MEDS ORDERED: INSULIN GLARGINE SOLOSTAR 100 UNITS/ML 3 ML PEN SC SCH (21:00)
[2021-05-19] MEDS: INSULIN REGULAR 250 UNITS in SODIUM CHLORIDE 0.9% 247.5 ML IV SCH (00:37)
[2021-05-19 03:02] LABS: Appearance Urine Clear (Clear); Bilirubin Urine Negative (Negative); Blood Urine Negative (Negative); Color Urine Yellow; Glucose Urine UA Negative (Negative); Ketones Urine Negative (Negative); Leukocyte Esterase Urine Negative (Negative); Nitrite Urine Negative (Negative); Protein Urine Negative (Negative); Specific Gravity Urine 1.012 (1.000-1.030); Urobilinogen Urine Negative (Negative)
[2021-05-19] MEDS: INSULIN ASPART PER UNIT SC SCH ×2 (04:14→09:42)
[2021-05-19] MEDS: buPROPion SR 150 MG TABCR PO SCH (08:50)
[2021-05-19] MEDS: FOLIC ACID 1 MG TAB PO SCH (08:50)
[2021-05-19] MEDS: ARMOUR THYROID 30 MG TAB PO SCH (08:50)
[2021-05-19] MEDS: APIXABAN 5 MG TABLET PO SCH (08:51)
[2021-05-19] MEDS: ASPIRIN 81 MG ECTAB PO SCH (08:51)
[2021-05-19] MEDS: ATORVASTATIN 20 MG TAB PO SCH (08:51)
[2021-05-19] MEDS: carvediloL 12.5 MG TAB PO SCH (08:51)
[2021-05-19] MEDS: PANTOprazole 40 MG TAB PO SCH (08:52)
[2021-05-19] MEDS: dexAMETHasone 6 MG in SYRINGE 0 ML IV SCH (08:52)
[2021-05-19] MEDS: buPROPion XL 300 MG TABCR PO SCH (08:52)
[2021-05-19] MEDS: VIIBRYD~ORDER AWAITING ACTION SCH (08:53)
[2021-05-19] MEDS: INSULIN HUMAN NPH SC SCH (09:48)
[2021-05-19] MEDS: NSS + 20MEQ KCL 20 MEQ/1,000 ML BAG IV SCH (09:50)
--- NOTE | 2021-05-19 10:44 | Pharmacy Report ---
Pharmacy Glycemic Short Note 2 - Date of Service May 19, 2021 - Glycemic Short BSG Results (Last 24 hours): 05/18/21 05/18/21 05/18/21 11:05 11:06 11:56 Glucose POC Glucose 291 H 290 H 228 H 05/18/21 05/18/21 05/18/21 12:24 13:15 14:16 Glucose 213 H POC Glucose 270 H 227 H 05/18/21 05/18/21 05/18/21 15:18 16:09 16:11 Glucose 124 H POC Glucose 158 H 138 H 05/18/21 05/18/21 05/18/21 17:11 18:07 19:04 Glucose POC Glucose 123 H 140 H 148 H 05/18/21 05/18/21 05/19/21 21:01 23:06 00:02 Glucose POC Glucose 108 H 88 71 05/19/21 05/19/21 05/19/21 00:44 01:03 01:22 Glucose POC Glucose 106 H 96 94 05/19/21 05/19/21 05/19/21 02:36 04:07 07:48 Glucose POC Glucose 103 H 142 H 127 H 05/19/21 08:58 Glucose POC Glucose 194 H OUTPATIENT ANTIDIABETIC REGIMEN: * Tresiba 74 units SC HS * Novolog 24 units SC with breakfast and lunch, 40 units SC with dinner * Victoza 1.8 units SC qAM * HbA1c: 9.4% (05/18/21) ASSESSMENT: 05/19/21: * Mr Todd met criteria and was taken off of insulin infusion overnight. * Will work on transitioning basal insulin back to PM dosing, for ease of discha rge planning. * Pt remains on IV dexamethasone. * Diet has been advanced. 05/18 * DW is a 71 year old male admitted last evening for COVID-19 pneumonia with likely mild DKA * Labs on presentation * BS mg/dL * Serum bicarbonate: 19 mmol/L * Anion gap: 14 * Beta-Hydroxybutyric acid: 45 mg/dL * Insulin infusion initiated in ED and continues this morning. Anion gap now 10, serum bicarbonate of 20. * Receiving dexamethasone 6 mg IV daily - covered with ~0.4 unit/kg (adjusted body weight) NPH * Now that labs are improved, will give dose of Lantus now in attempt to begin insulin drip transition to SC * Dextrose-containing IV fluids changed to NSS w/ 20 KCl @ 100 mL/hr PLAN FOR INPATIENT GLYCEMIC CONTROL: * Basal insulin * Lantus 74 units SQ qPM * NPH 40 units SC daily with IV dexamethasone (~0.4 unit/kg of adjusted body weight) * Bolus insulin * NovoLog per scale ACHS or Q6hrs while NPO * Goal Range: Low 110 mg/dL - High 140 mg/dL * Correction Factor: 10 mg/dL/unit * Nutritional / Prandial insulin per carb ratio of 1 unit per 4 grams CHO consumed PLAN FOR DISCHARGE: * A1c 9.4% * Target A1c for this patient is closer to 7%. * Pt likely requires adjustment to his insulin dosing. Recommend prompt f/u with outpt provider.
--- NOTE | 2021-05-19 13:17 | Death Pronouncement Note ---
Date of Service May 19, 2021 Pronouncement Note Admission Date Admission Date: May 17, 2021 Date and Time of Date of : 05/19/21 Time of : 10:24 PCOD Preliminary cause of : Acute respiratory failure due to COVID-19 Contributing Factors (1) Pneumonia due to COVID-19 virus: Contributing factors: Likely viral myocarditis (2) Acute hyperglycemia: Hospital Course Hospital Course: Discharge summary to follow Additional Data Confirmation of : no pulse, no respirations, no heart sounds and pupils fixed and dilated Family: attempt made Additional persons at bedside: other (RN, [facility] team) Attending physician: Miles Meyer MD
--- NOTE | 2021-05-19 13:31 | Discharge Summary ---
Date of Service May 19, 2021 Admission HPI Per Admitting Provider 71 year old male with PMH DM type II, HLD, PVD, HTN, CAD (patient denies stenting or CABG), CKD (unknown baseline creatinine), depression, history of MTHFR mutation, recent diagnosis of pulmonary embolism anticoagulant on Xarelto, hypothyroidism, who presents to the ED for evaluation of shortness of breath and nausea and vomiting. Patient reports being recently admitted to [facility] for similar complaints. Reports that he was diagnosed with pulmonary embolism. States that he has continued to feel poorly since his hospitalization. He reports ongoing shortness of breath, nausea and vomiting. He has had a cough productive for clear/white sputum. He has had a very poor appetite. Denies hematemesis and coffee-ground emesis. He also has been having diarrhea. Denies bright lymph rectum and dark tarry stools. No abdominal pain. Denies fevers and chills. No chest pain. Denies lightheadedness, dizziness, diaphoresis, syncopal event. No urinary symptoms. In the ED, patient tested positive for COVID-19. He was found to be hypoxic on room air with ambulation. Currently requiring 2 years of oxygen via cannula. Labs show creatinine 2.34 (unknown baseline), glucose 321. CT ABD/pelvis unremarkable for acute abdominal findings however does show bibasilar groundglass opacities. Patient was given IV insulin, IV Zofran, IVF. Admission Exam Per Admitting Provider Vital signs reviewed. Physical exam: General exam: Alert and oriented. Not in acute distress. CVS: S1 and S2 heard, regular rate and rhythm, no murmurs. RS: Clear to auscultation, no wheezing or crackles. ABD: Soft, bowel sounds present, nontender, no distention. CIRCLE EDGER: Nonfocal. EXT: No edema, no erythema. Principal Diagnosis Acute respiratory failure on the background of COVID 19 pneumonia, likely viral myocarditis superimposition as well. Discharge Exam GENERAL: unresponsive to sternal rub, HEENT: Pupils dilated and fixed, no respiratory effort. NECK: no carotid pulse identified. HEART: No heart sounds appreciated RESPIRATORY SYSTEM: No respiratory effort identified ABDOMEN: Soft, no distention. CENTRAL NERVOUS SYSTEM: non responsive to sternal rub, no pupillary reflex to light EXTREMITIES: Trace to 1+ BLE edema, chronic skin changes appreciated. No erythema seen. Discharge Data Allergies Allergy/AdvReac Type Severity Reaction Status Date / Time No Known Allergies Allergy Verified 05/17/21 16:38 Consultations 05/17/21 18:57 ED Decision to Admit Stat Ordered Studies 05/17/21 17:53 CT abd pelvis wo con Stat Hospital Course (1) Acute respiratory failure with hypoxia: (2) Pneumonia due to COVID-19 virus: (3) Acute hyperglycemia: DISCHARGE SUMMARY: 71 year old male with PMH DM type II, HLD, PVD, HTN, CAD (patient denies stenting or CABG), CKD (unknown baseline creatinine), depression, history of MTHFR mutation, recent diagnosis of pulmonary embolism anticoagulant on Xarelto, hypothyroidism, presented to ED 05/17 for evaluation of shortness of breath and nausea and vomiting. Of note, patient reports being recently admitted to [facility] for similar complaints and was found to have pulmonary embolism and started on Xarelto. He was managed for the following: (1) Acute respiratory failure with hypoxia: - fluctuating course (2) Pneumonia due to COVID-19 virus: Plan: -Admitted to [facility] with telemetry -Patient presenting from home with reports of shortness of breath, intractable nausea and vomiting. Patient reports recently being admitted to [facility] at the end of April and was diagnosed with acute pulmonary embolism. Patient was started on Xarelto. Reports that he was admitted for similar symptoms he presented with at admission and has continued to feel poorly since discharge from the hospital. -In the ED, patient tested positive for COVID-19. Patient is vaccinated however overdue for booster. -Initially patient was saturating well on room air however when ambulating to the bathroom, became hypoxic requiring 2 L of oxygen via nasal cannula in the ED - Admitting CXR relatively clear however CT ABD/pelvis shows bibasilar groundglass opacities -Admitting procalcitonin and CRP negative. -Patient was under dexamethasone for COVID, had multiple episodes of sudden shortness of breath on the morning of 05/19 per RN where he required oxygen up to 6 L, RN reported patient was not feeling well in the morning and darlene foster was called at around 10:15 AM, patient had taken out IV site in the morning. By the time I arrive, which was immediately, his face and neck skin color has changed to purple, his body was cold and clammy, he was having agonal breathing, and was having asystole in the monitor. -- Patient was pronounced on 05/19/2021 at 10:24 AM. Patient's friend who is the primary contact was attempted to contact, RN was finally able to get hold of him. -- Likely cause of Acute respiratory failure 2/2 Pneumonia due to COVID 19 virus infection. Unlikely he has blood clot as he was on Eliquis. Small probability that he could have viral myocarditis but not proven. He was also being managed for the following prior to this event: (3) KAITY (acute kidney injury): (4) Chronic kidney disease: (5) Acute hyperglycemia: (6) Diabetes mellitus, type 2: (7) Nausea and vomiting: (8) History of pulmonary embolism: Plan: -Per patient he was recently diagnosed with acute pulmonary embolism while admitted to [facility] and started on Xarelto -Given abnormal renal function, patient transitioned to Eliquis 5 mg twice daily. Dosing was discussed with pharmacist. (9) CAD (coronary artery disease): (10) Hypertension: (11) Depression: (12) DVT prophylaxis: Plan: -Eliquis as above Total Time Total Time Spent Total Time Spent (In Minutes): 40 Discharge Plan Discharge Items Patient Disposition: Other Date/Time: 05/19/21 10:24
== END 2021-05-19 12:38 | disposition expired | DRG 177 ==
LOC: ED 15:46 → SUATTDRO 20:01 → EDINP 20:01 → 2W 23:37